=== PATIENT | female | born 1965 | race Asian ===

== ENCOUNTER 2021-10-02 08:48 | Emergency (ER) | payer BC, OTHER ==
[~2021-10-02] VITALS: Ht 160 cm; Wt 57.6 kg
--- NOTE | 2021-10-02 08:59 | NUR ---
Patient to ER bed 02 to gown for evaluation. Side rails up.
--- NOTE | 2021-10-02 09:00 | NUR ---
PATIENT STATES SHE WAS VISITING MOM IN THE HOSPITAL WHEN SHE SLIPPED AND FELL. C/C LEFT KNEE PAIN.
[2021-10-02 09:06] VITALS: BP_SYST 156
--- NOTE | 2021-10-02 09:10 | NUR ---
MD AT BEDSIDE ASSESSING PATIENT.
--- NOTE | 2021-10-02 09:49 | NUR ---
PATIENT TAKEN TO XRAY FOR EXAM
--- NOTE | 2021-10-02 09:50 | NUR ---
KNEE BRACE APPLIED, CRUTCHES GIVEN, EDUCATION PROVIDED ON PROPER USE OF DME, PATIENT RETURNED DEMONSTRATION.
[2021-10-02] MEDS ORDERED: IBUP-2018 PO (10:11)
--- NOTE | 2021-10-02 10:25 | NUR ---
Patient given written and verbal discharge instructions and verbalizes understanding. ER MD discussed with patient the results and treatment provided. Patient in stable condition. ID arm band removed. Rx of given. Patient educated on pain management and to follow up with PMD. Pain Scale 3/10 Opportunity for questions provided and answered. Medication side effect fact sheet provided.
[2021-10-02 10:41] VITALS: BP_SYST 156
[2021-10-02] MEDS ORDERED: IBUP-1969 PO (13:35)
[2021-10-02] MEDS ORDERED: TRAM50TA PO (13:35)
== END 2021-10-02 10:41 | disposition home or self-care (01) ==
LOC: SED 08:48
DX: S82.002A Unspecified fracture of left patella, initial encounter for closed fracture (principal); W01.0XXA Fall on same level from slipping, tripping and stumbling without subsequent striking against object, initial encounter; Y93.89 Activity, other specified; Y92.89 Other specified places as the place of occurrence of the external cause; Y99.8 Other external cause status
CPT/HCPCS: 73564; 99283